=== PATIENT | male | born 1965 | race American Indian/Alaskan Native ===

== ENCOUNTER 2016-06-30 15:47 | Outpatient (CLI) | payer OTHER ==
--- NOTE | 2016-06-30 16:28 | XRay Report ---
Left hip 2 views: History: Hip pain. Findings: There is mild arthritic changes noted at the superior lateral aspect of the joint. No fracture dislocation or soft tissue calcification. Impression: Mild arthritic changes left hip.
== END 2016-06-30 15:48 | disposition home or self-care (01) ==
LOC: XRAY 15:47
DX: M25.552 Pain in left hip (principal)